=== PATIENT | male | born 2000 | race Caucasian/White ===

== ENCOUNTER 2019-04-04 11:32 | Emergency (ER) | payer BC, OTHER ==
[2019-04-04] MEDS ORDERED: LIDOCAINE VISCOUS 2% SOLN 15 ML UDC ONE (12:32)
[2019-04-04] MEDS ORDERED: FAMOTIDINE 20 MG TAB ONE (12:32)
[2019-04-04] MEDS ORDERED: MAGNE/ALUM HYDROXD 30 ML UCUP ONE (12:32)
[2019-04-04] MEDS ORDERED: ONDANSETRON 4 MG (ODT) TAB ONE (12:33)
--- NOTE | 2019-04-04 12:42 | ER ---
Nurse's Notes [facility] Name: Jay Haddad Age: 19 yrs Sex: Male : 2000 Arrival Date: 04/04/2019 Time: 11:35 Bed 19 [facility] MD: Diagnosis: Hematemesis;Alcoholic gastritis Presentation: 04/04 11:44 Presenting complaint: Patient states: "I threw up a few times this morning and I saw hb some blood in it." Reports nausea and sore throat x 1 week. Tolerating fludis. Transition of care: patient was not received from another setting of care. Onset of symptoms was April 04, 2019. Risk Assessment: Do you want to hurt yourself or someone else? Patient reports no desire to harm self or others. Care prior to arrival: None. 11:44 Method Of Arrival: Ambulatory hb 11:44 Acuity: ADY 4 hb 12:00 Initial Sepsis Screen: Does the patient meet any 2 criteria? No. Patient's initial ca1 sepsis screen is negative. Does the patient have a suspected source of infection? No. Patient's initial sepsis screen is negative. Triage Assessment: 13:27 GI: Reports. ca1 Historical: - Allergies: 11:45 No Known Allergies; hb - Home Meds: 11:45 None [Active]; hb - PMHx: 11:45 None; hb - PSHx: 11:45 None; hb - Immunization history:: Adult Immunizations up to date. - Social history:: Smoking status: Patient/guardian denies using tobacco. - Ebola Screening: : No symptoms or risks identified at this time. - Family history:: not pertinent. - Hospitalizations: : No recent hospitalization is reported. Screenin:59 Abuse screen: Denies threats or abuse. Denies injuries from another. Nutritional ca1 screening: No deficits noted. Tuberculosis screening: No symptoms or risk factors identified. Fall Risk None identified. Assessment: 11:59 General: Appears in no apparent distress. comfortable, Behavior is calm, cooperative, ca1 appropriate for age. Pain: Complains of pain in epigastric area Pain currently is 2 out of 10 on a pain scale. Pain began after vomiting Is intermittent. Neuro: Level of Consciousness is awake, alert, obeys commands, Oriented to person, place, time, situation, Appropriate for age. GI: Abdomen is flat, non-distended, Bowel sounds present X 4 quads. Abd is soft X 4 quads Abdomen is tender to palpation in left upper quadrant. : No deficits noted. No signs and/or symptoms were reported regarding the genitourinary system. Derm: Skin is intact, is healthy with good turgor, Skin is pink, warm \\T\\ dry. Musculoskeletal: Circulation, motion, and sensation intact. Capillary refill < 3 seconds. 13:15 Reassessment: Patient appears in no apparent distress at this time. Patient is alert, ca1 oriented x 3, equal unlabored respirations, skin warm/dry/pink. Patient states feeling better. Vital Signs: 11:45 BP 132 / 82; Pulse 80; Resp 16; Temp 98.2; Pulse Ox 98% on R/A; Weight 72.57 kg; Height hb 5 ft. 7 in. (170.18 cm); Pain 3/10; 13:15 BP 122 / 82; Pulse 85; Resp 17 S; Pulse Ox 99% on R/A; ca1 11:45 Body Mass Index 25.06 (72.57 kg, 170.18 cm) hb ED Course: 11:35 Patient arrived in ED. mr 11:45 Triage completed. hb 11:45 Arm band placed on. hb 11:53 Faby Batista, RN is Primary Nurse. ca1 11:59 Patient has correct armband on for positive identification. Placed in gown. Bed in low ca1 position. Call light in reach. Side rails up X 1. Pulse ox on. NIBP on. 12:18 Tyrone Philip MD is Attending Physician. rn 12:42 Jered Thomas MD is Referral Physician. rn 13:20 No provider procedures requiring assistance completed. Patient did not have IV access ca1 during this emergency room visit. Administered Medications: 12:31 Drug: Pepcid 20 mg Route: PO; ca1 13:26 Follow up: Response: No adverse reaction; Pain is decreased ca1 12:32 Drug: Zofran 4 mg Route: PO; ca1 13:25 Follow up: Response: No adverse reaction; Pain is decreased ca1 12:35 Drug: GI Cocktail without - (Maalox Suspension 30 ml, Lidocaine Liquid 2 % 15 ca1 ml) Route: PO; 13:25 Follow up: Response: No adverse reaction; Pain is decreased ca1 Outcome: 12:42 Discharge ordered by . rn 13:20 Discharged to home ambulatory. ca1 13:20 Condition: stable 13:20 Discharge instructions given to patient, Instructed on discharge instructions, follow up and referral plans. medication usage, Demonstrated understanding of instructions, follow-up care, medications, Prescriptions given X 2. 13:28 Patient left the ED. ca1 Signatures: Esperanza Chambers Roman, MD MD rn Baxter, Heather, RN RN Faby Batista RN RN ca1
--- NOTE | 2019-04-04 12:42 | EDPHYS ---
Physician Documentation [facility] Name: Jay Haddad Age: 19 yrs Sex: Male : 2000 Arrival Date: 04/04/2019 Time: 11:35 Bed 19 Private MD: ED Physician Tyrone Philip HPI: 04/04 12:37 This 19 yrs old Male presents to ER via Ambulatory with complaints of rn Vomiting. 12:37 The patient presents to the emergency department with nausea, vomiting. Onset: The rn symptoms/episode began/occurred just prior to arrival. Possible causes: unknown. The symptoms are aggravated by nothing. The symptoms are alleviated by nothing. Associated signs and symptoms: Pertinent positives: nausea, vomiting, Pertinent negatives: abdominal pain, diarrhea, dysuria, fever, hematuria. Severity of symptoms: At their worst the symptoms were mild in the emergency department the symptoms have improved. The patient has not experienced similar symptoms in the past. Reports just turned 19 this weekend, moderate to heavy drinking, again last night, woke up to go to work this AM, threw up small amount of blood x 2, less in second one, and no longer happened, came in for evaluation. No abd pain. No black or bloody stool. No hx of acid reflux. . Historical: - Allergies: 11:45 No Known Allergies; hb - Home Meds: 11:45 None [Active]; hb - PMHx: 11:45 None; hb - PSHx: 11:45 None; hb - Immunization history:: Adult Immunizations up to date. - Social history:: Smoking status: Patient/guardian denies using tobacco. - Ebola Screening: : No symptoms or risks identified at this time. - Family history:: not pertinent. - Hospitalizations: : No recent hospitalization is reported. ROS: 12:37 Constitutional: Negative for fever, chills, and weight loss, Eyes: Negative for injury, rn pain, redness, and discharge, Neck: Negative for injury, pain, and swelling, Cardiovascular: Negative for chest pain, palpitations, and edema, Respiratory: Negative for shortness of breath, cough, wheezing, and pleuritic chest pain, Abdomen/GI: Negative for abdominal pain, diarrhea, and constipation, MS/Extremity: Negative for injury and deformity, Skin: Negative for injury, rash, and discoloration, Neuro: Negative for headache, weakness, numbness, tingling, and seizure. Exam: 12:37 Constitutional: This is a well developed, well nourished patient who is awake, alert, rn and in no acute distress. Head/Face: Normocephalic, atraumatic. ENT: No oral trauma or bleeding Neck: Trachea midline, no thyromegaly or masses palpated, and no cervical lymphadenopathy. Supple, full range of motion without nuchal rigidity, or vertebral point tenderness. No Meningismus. Cardiovascular: Regular rate and rhythm. No pulse deficits. Respiratory: No increased work of breathing, no retractions or nasal flaring. Abdomen/GI: soft, non-tender, no rebound/masses MS/ Extremity: Pulses equal, no cyanosis. Neurovascular intact. Full, normal range of motion. Equal circumference. Neuro: Awake and alert, GCS 15, oriented to person, place, time, and situation. Cranial nerves II-XII grossly intact. Motor strength 5/5 in all extremities. Sensory grossly intact. Cerebellar exam normal Vital Signs: 11:45 BP 132 / 82; Pulse 80; Resp 16; Temp 98.2; Pulse Ox 98% on R/A; Weight 72.57 kg; Height hb 5 ft. 7 in. (170.18 cm); Pain 3/10; 13:15 BP 122 / 82; Pulse 85; Resp 17 S; Pulse Ox 99% on R/A; ca1 11:45 Body Mass Index 25.06 (72.57 kg, 170.18 cm) hb MDM: 12:18 Patient medically screened. rn 12:37 Differential diagnosis: gastritis, lucretia martinez tear. Data reviewed: vital signs, rn nurses notes, and as a result, I will discharge patient. Counseling: I had a detailed discussion with the patient and/or guardian regarding: the historical points, exam findings, and any diagnostic results supporting the discharge/admit diagnosis, the need for outpatient follow up, to return to the emergency department if symptoms worsen or persist or if there are any questions or concerns that arise at home. Response to treatment: the patient's symptoms have mildly improved after treatment, and as a result, I will discharge patient. ED course: Given heavy drinking this weekend, dry heaves, and normal vitals/exam, most likely either small tear vs alcoholic gastritis, recommend cessation of ETOH, will give nausea and acid meds, and return precautions, no indication for emergent EGD at this point. . Administered Medications: 12:31 Drug: Pepcid 20 mg Route: PO; ca1 13:26 Follow up: Response: No adverse reaction; Pain is decreased ca1 12:32 Drug: Zofran 4 mg Route: PO; ca1 13:25 Follow up: Response: No adverse reaction; Pain is decreased ca1 12:35 Drug: GI Cocktail without - (Maalox Suspension 30 ml, Lidocaine Liquid 2 % 15 ca1 ml) Route: PO; 13:25 Follow up: Response: No adverse reaction; Pain is decreased ca1 Disposition: 04/04/19 12:42 Discharged to Home. Impression: Hematemesis, Alcoholic gastritis. - Condition is Stable. - Discharge Instructions: Gastritis, Adult, Hematemesis, Lucretia-Martinez Syndrome. - Prescriptions for Zofran ODT 4 mg Oral tablet,disintegrating - place 1 tablet by TRANSLINGUAL route every 8 hours As needed; 20 tablet. Protonix 40 mg Oral Tablet - take 1 tablet by ORAL route once daily; 30 tablet. - Work release form, Medication Reconciliation Form, Thank You Letter, Antibiotic Education, Prescription Opioid Use form. - Follow up: Jered Thomas MD; When: As needed; Reason: Recheck today's complaints, Re-evaluation by your physician. - Problem is new. - Symptoms have improved. Signatures: Tyrone Philip MD MD rn Baxter, Heather, RN RN AcFaby hills RN RN ca1 Corrections: (The following items were deleted from the chart) 13:28 12:42 04/04/2019 12:42 Discharged to Home. Impression: Hematemesis; Alcoholic ca1 gastritis. Condition is Stable. Forms are Medication Reconciliation Form, Thank You Letter, Antibiotic Education, Prescription Opioid Use. Follow up: Jered Thomas; When: As needed; Reason: Recheck today's complaints, Re-evaluation by your physician. Problem is new. Symptoms have improved. rn
[2019-04-04 13:36] VITALS: TEMP 98.2
[2019-04-04 13:37] VITALS: BP 122/82; O2SAT 99
== END 2019-04-04 13:28 | disposition home or self-care (01) ==
LOC: ER 11:32
DX: K92.0 Hematemesis (principal); K29.21 Alcoholic gastritis with bleeding
CPT/HCPCS: 99283

== ENCOUNTER 2019-09-14 11:35 | Emergency (ER) | payer BC, OTHER ==
--- NOTE | 2019-09-14 12:57 | RAD REPORT ---
EXAM DESCRIPTION: RAD - Chest Single View - 09/14/2019 12:47 pm CLINICAL HISTORY: fever, cough Chest pain. COMPARISON: No comparisons FINDINGS: Portable technique limits examination quality. The lungs are grossly clear. The heart is normal in size. No displaced fractures. IMPRESSION: No acute intrathoracic process suspected.
--- NOTE | 2019-09-14 13:30 | ER ---
Nurse's Notes [facility] Name: Jay Haddad Age: 19 yrs Sex: Male : 2000 Arrival Date: 09/14/2019 Time: 11:41 Bed 15 Private MD: Diagnosis: Other viral infections of unspecified site Presentation: 09/13 11:51 Chief complaint: Nonproductive cough, sore throat, and fever x 2 days, diarrhea today. hb Denies SOB. TMAX 100.8. Coronavirus screen: Patient reports a cough. Patient reports a measured and/or subjective temperature greater than 100.4F. Patient denies contact with known and/or suspected case of COVID-19. pt instructed to keep facial mask in place, pt verbalized understanding of instructions. RAFAEL Mora notified. Ebola Screen: No symptoms or risks identified at this time. Resp Distress? No respiratory distress is noted at this time. Initial Sepsis Screen: Does the patient meet any 2 criteria? No. Patient's initial sepsis screen is negative. Does the patient have a suspected source of infection? No. Patient's initial sepsis screen is negative. Risk Assessment: Do you want to hurt yourself or someone else? Patient reports no desire to harm self or others. Onset of symptoms was September 13, 2019. 11:51 Method Of Arrival: Ambulatory hb 11:51 Acuity: ADY 3 hb Historical: - Allergies: 11:55 No Known Allergies; hb - Home Meds: 11:55 None [Active]; hb - PMHx: 11:55 None; hb - PSHx: 11:55 None; hb - Immunization history:: Adult Immunizations up to date. - Social history:: Smoking status: Patient denies any tobacco usage or history of. Screenin:26 Abuse screen: Denies threats or abuse. Nutritional screening: No deficits noted. ll1 Tuberculosis screening: No symptoms or risk factors identified. Fall Risk None identified. Total Connolly Fall Scale indicates No Risk (0-24 pts). Assessment: 12:24 General: Appears in no apparent distress. Behavior is calm, cooperative, appropriate ll1 for age. Pain: Complains of pain in sore throat Quality of pain is described as aching, Pain began 2-3 days ago. Neuro: No deficits noted. Cardiovascular: No deficits noted. Cardiovascular: No deficits noted. Respiratory: Reports cough that is non-productive, Airway is patent Trachea midline Respiratory effort is even, unlabored, Respiratory pattern is regular, symmetrical, Breath sounds are clear bilaterally. Onset: The symptoms/episode began/occurred 3 days ago. GI: Abdomen is flat, Bowel sounds present X 4 quads. Abd is soft and non tender X 4 quads. Reports diarrhea. : No deficits noted. 13:16 Reassessment: Spoke with Yolanda at [facility], issued PUI# [id number], outside lab notified.hb 13:20 Reassessment: No changes from previously documented assessment. Patient and/or family ll1 updated on plan of care and expected duration. Pain level reassessed. Patient is alert, oriented x 3, equal unlabored respirations, skin warm/dry/pink. Vital Signs: 11:51 BP 134 / 90; Pulse 89; Resp 16; Temp 99.4(TE); Pulse Ox 97% on R/A; Weight 74.84 kg; hb Height 5 ft. 8 in. (172.72 cm); Pain 4/10; 13:56 BP 113 / 71; Pulse 64; Resp 17; Pulse Ox 98% ; Pain 0/10; ll1 11:51 Body Mass Index 25.09 (74.84 kg, 172.72 cm) hb ED Course: 11:41 Patient arrived in ED. mr 11:46 Morgan Tejeda PA is PHCP. m 11:46 Deepak Diane MD is Attending Physician. m 11:51 Angelo Catalan, RN is Primary Nurse. ll1 11:54 Triage completed. hb 11:55 Arm band placed on. hb 12:27 Patient has correct armband on for positive identification. Bed in low position. Call ll1 light in reach. Side rails up X 1. 12:47 Chest Single View XRAY In Process Unspecified. EDMS 13:54 No provider procedures requiring assistance completed. Patient did not have IV access ll1 during this emergency room visit. Administered Medications: No medications were administered Outcome: 13:30 Discharge ordered by . [facility] 13:55 Discharged to home ambulatory. ll1 13:55 Condition: stable 13:55 Discharge instructions given to patient, Instructed on discharge instructions, follow up and referral plans. Demonstrated understanding of instructions, follow-up care. 13:59 Patient left the ED. ll1 Addendum: 09/18/2019 16:10 Addendum: Other pt notified of negative COVID-19 swab results. Pt advised to continue d m5 to monitor symptoms, to remain in isolation until fever free for 72 hours without medication or 7 days from symptom onset, and to return to the ED if symptoms worsen. Signatures: Dispatcher [employer] Steph Frederick RN RN dm5 Morgan Tejeda PA PA jmm Rivera, Mary Yolanda Harry RN RN hb Lewis, Lynsay, RN RN ll1
--- NOTE | 2019-09-14 13:31 | EDPHYS ---
Physician Documentation [facility] Name: Jay Haddad Age: 19 yrs Sex: Male : 2000 Arrival Date: 09/14/2019 Time: 11:41 Bed 15 Private MD: ED Physician Deepak Diane HPI: 09/13 11:48 This 19 yrs old Male presents to ER via Ambulatory with complaints of Cough, jmm Congestion, Fever, Sore Throat. 11:48 The patient or guardian reports cough, described as moderate. Onset: The jmm symptoms/episode began/occurred gradually, 2 day(s) ago. Modifying factors: The symptoms are alleviated by nothing, the symptoms are aggravated by nothing. Associated signs and symptoms: Pertinent positives: diarrhea, fever. This is a 19 year old male with no chronic medical conditions that presents to the ED with complaints of cough, sore throat, congestion, diarrhea beginning today with fever. Patient denies shortness of breath.. Historical: - Allergies: 11:55 No Known Allergies; hb - Home Meds: 11:55 None [Active]; hb - PMHx: 11:55 None; hb - PSHx: 11:55 None; hb - Immunization history:: Adult Immunizations up to date. - Social history:: Smoking status: Patient denies any tobacco usage or history of. ROS: 11:14 Eyes: Negative for injury, pain, redness, and discharge. jmm 11:14 ENT: Positive for sinus congestion, sore throat. jmm 11:14 Respiratory: Positive for cough. 11:14 Abdomen/GI: Positive for diarrhea, Negative for abdominal pain, nausea and vomiting. 11:14 All other systems are negative. 11:48 Constitutional: Positive for body aches, fever. jmm Exam: 11:14 Constitutional: This is a well developed, well nourished patient who is awake, alert, jmm and in no acute distress. Head/Face: atraumatic. Eyes: EOMI, no conjunctival erythema appreciated ENT: Moist Mucus Membranes Neck: Trachea midline, Supple Chest/axilla: Normal chest wall appearance and motion. Cardiovascular: Regular rate and rhythm. No edema appreciated Respiratory: Normal respirations, no respiratory distress appreciated Abdomen/GI: Non distended, soft Back: Normal ROM Skin: General appearance color normal MS/ Extremity: Moves all extremities, no obvious deformities appreciated, no edema noted to the lower extremities Neuro: Awake and alert, normal gait Psych: Behavior is normal, Mood is normal, Patient is cooperative and pleasant Vital Signs: 11:51 BP 134 / 90; Pulse 89; Resp 16; Temp 99.4(TE); Pulse Ox 97% on R/A; Weight 74.84 kg; hb Height 5 ft. 8 in. (172.72 cm); Pain 4/10; 13:56 BP 113 / 71; Pulse 64; Resp 17; Pulse Ox 98% ; Pain 0/10; ll1 11:51 Body Mass Index 25.09 (74.84 kg, 172.72 cm) hb MDM: 11:48 Patient medically screened. [facility] 13:30 Data reviewed: vital signs, nurses notes. Counseling: I had a detailed discussion with carlie the patient and/or guardian regarding: the historical points, exam findings, and any diagnostic results supporting the discharge/admit diagnosis, lab results, radiology results, the need for outpatient follow up, to return to the emergency department if symptoms worsen or persist or if there are any questions or concerns that arise at home. 14:21 ED course: Patient is alert and non toxic in appearance in the ED. No signs of hypoxia. [facility] patient is given strict return precautions. patient understood and agrees with the plan of care. . 09/13 11:57 Order name: COVID-19 [facility] 09/13 11:57 Order name: Flu; Complete Time: 13:03 [facility] 09/13 11:57 Order name: Strep; Complete Time: 13:03 [facility] 09/13 11:57 Order name: Document PUI# [facility] 09/13 11:57 Order name: Chest Single View XRAY; Complete Time: 13:03 [facility] 09/13 12:59 Order name: Throat Culture [facility] 09/13 11:57 Order name: Droplet/Contact Precautions; Complete Time: 12:14 [facility] 09/13 11:57 Order name: Labs collected and sent; Complete Time: 12:14 [facility] 09/13 11:57 Order name: Notify Health Dept [id number]/ [facility] 09/13 11:57 Order name: O2 Per Protocol; Complete Time: 12:14 [facility] Administered Medications: No medications were administered Disposition: 14:55 Co-signature as Attending Physician, Deepak Diane MD I agree with the assessment and maki plan of care. Disposition: 09/14/19 13:30 Discharged to Home. Impression: Other viral infections of unspecified site. - Condition is Stable. - Discharge Instructions: Viral Respiratory Infection, COVID-19. - Medication Reconciliation Form, Thank You Letter, Antibiotic Education, Prescription Opioid Use, Work release form form. - Follow up: Private Physician; When: 2 - 3 days; Reason: Recheck today's complaints, Continuance of care, Re-evaluation by your physician. Signatures: Dispatcher [employer] EDDeepak Mackay MD MD cha Mickail, Joel, PA PA Yolanda Naik, RN RN Angelo Wakefield RN RN ll1 Corrections: (The following items were deleted from the chart) 13:59 13:30 09/14/2019 13:30 Discharged to Home. Impression: Other viral infections of ll1 unspecified site. Condition is Stable. Forms are Medication Reconciliation Form, Thank You Letter, Antibiotic Education, Prescription Opioid Use. Follow up: Private Physician; When: 2 - 3 days; Reason: Recheck today's complaints, Continuance of care, Re-evaluation by your physician. carile 14:22 13:30 Counseling: I had a detailed discussion with the patient and/or guardian carlie regarding: the historical points, exam findings, and any diagnostic results supporting the discharge/admit diagnosis, the need for outpatient follow up, to return to the emergency department if symptoms worsen or persist or if there are any questions or concerns that arise at home, carlie
[2019-09-14 14:10] VITALS: BP 134/90; TEMP 99.4; O2SAT 97
== END 2019-09-14 13:59 | disposition home or self-care (01) ==
LOC: ER 11:35
DX: B34.8 Other viral infections of unspecified site (principal); Z20.828 Contact with and (suspected) exposure to other viral communicable diseases
CPT/HCPCS: 87070; 87081; 87804 ×2; 71045; 99283; U0001

== ENCOUNTER 2020-02-29 06:28 | Emergency (ER) | payer BC, OTHER ==
[2020-02-29] MEDS ORDERED: KETOROLAC 30 MG/ML INJ ONE (07:46)
[2020-02-29] MEDS ORDERED: METHYLPREDNISOLONE 125 MG INJ ONE (07:46)
--- NOTE | 2020-02-29 09:04 | RAD REPORT ---
EXAM DESCRIPTION: RAD - Chest Single View - 02/29/2020 7:54 am CLINICAL HISTORY: CHEST PAIN Chest pain. COMPARISON: Chest Single View dated 09/14/2019 FINDINGS: Portable technique limits examination quality. The lungs are grossly clear. The heart is normal in size. No displaced fractures. IMPRESSION: No acute intrathoracic process suspected.
--- NOTE | 2020-02-29 09:28 | ER ---
Nurse's Notes [facility] Name: Jay Haddad Age: 19 yrs Sex: Male : 2000 Arrival Date: 02/29/2020 Time: 06:30 Bed 13 Private MD: Diagnosis: Other chest pain Presentation: 02/28 06:38 Onset of symptoms was February 29, 2020. Care prior to arrival: None. sg 06:38 Acuity: ADY 3 sg 06:38 Chief complaint: Patient states: I woke up this morning to get dressed for work when I sg had a sudden onset of chest tightness with shortness of breath lasting about 5 mins, no other symptoms reported for triage. Coronavirus screen: Client denies travel out of the [place] in the last 14 days. At this time, the client does not indicate any symptoms associated with coronavirus-19. Ebola Screen: Patient negative for fever greater than or equal to 101.5 degrees Fahrenheit, and additional compatible Ebola Virus Disease symptoms Patient denies exposure to infectious person. Patient denies travel to an Ebola-affected area in the 21 days before illness onset. No symptoms or risks identified at this time. Initial Sepsis Screen: Does the patient meet any 2 criteria? No. Patient's initial sepsis screen is negative. Does the patient have a suspected source of infection? No. Patient's initial sepsis screen is negative. Risk Assessment: Do you want to hurt yourself or someone else? Patient reports no desire to harm self or others. Transition of care: patient was not received from another setting of care. 06:38 Method Of Arrival: Ambulatory sg Historical: - Allergies: 07:01 No Known Allergies; sg - Home Meds: 07:01 None [Active]; sg - PMHx: 07:01 None; sg - PSHx: 07:01 None; sg - Immunization history:: Adult Immunizations up to date. - Social history:: Smoking status: Patient denies any tobacco usage or history of. Screenin:40 Abuse screen: Denies threats or abuse. Denies injuries from another. Nutritional hb screening: No deficits noted. Tuberculosis screening: No symptoms or risk factors identified. Fall Risk None identified. Assessment: 07:40 General: Appears in no apparent distress. Behavior is calm, cooperative. Pain: hb Complains of pain in chest left upper chest Pain currently is 0 out of 10 on a pain scale. at worst was 3 out of 10 on a pain scale. Quality of pain is described as sharp, stabbing, Pain began suddenly, 2 hours ago. Is intermittent, lasting a few minutes. Neuro: Level of Consciousness is awake, alert, obeys commands, Oriented to person, place, time, situation. Cardiovascular: Capillary refill < 3 seconds Patient's skin is warm and dry. Rhythm is regular. Respiratory: Respiratory effort is even, unlabored, Respiratory pattern is regular, symmetrical. GI: No signs and/or symptoms were reported involving the gastrointestinal system. : No signs and/or symptoms were reported regarding the genitourinary system. EENT: No signs and/or symptoms were reported regarding the EENT system. Derm: Skin is pink, warm \T\ dry. Musculoskeletal: No signs and/or symptoms reported regarding the musculoskeletal system. 08:14 Reassessment: Patient appears in no apparent distress at this time. No changes from previously documented assessment. Patient and/or family updated on plan of care and expected duration. Pain level reassessed. Patient is alert, oriented x 3, equal unlabored respirations, skin warm/dry/pink. 09:12 Reassessment: Patient appears in no apparent distress at this time. Patient and/or hb family updated on plan of care and expected duration. Pain level reassessed. Patient is alert, oriented x 3, equal unlabored respirations, skin warm/dry/pink. 09:40 Reassessment: Patient appears in no apparent distress at this time. Patient and/or vg1 family updated on plan of care and expected duration. Pain level reassessed. Patient is alert, oriented x 3, equal unlabored respirations, skin warm/dry/pink. Vital Signs: 06:58 BP 121 / 73; Pulse 73; Resp 18; Temp 98.4(O); Pulse Ox 100% on R/A; mw2 08:13 BP 113 / 73; Pulse 67; Resp 16; Pulse Ox 98% ; hb 09:12 BP 109 / 82; Pulse 64; Resp 16; Pulse Ox 99% on R/A; hb ED Course: 06:30 Patient arrived in ED. cl3 06:38 Triage completed. sg 06:38 Arm band placed on. sg 07:20 Jesse Harden MD is Attending Physician. kdr 07:31 Harry, Yolanda, RN is Primary Nurse. hb 07:35 Inserted saline lock: 20 gauge in right antecubital area, using aseptic technique. hb 07:40 Patient has correct armband on for positive identification. Bed in low position. Call light in reach. Side rails up X 1. bullet casting operator on. Pulse ox on. NIBP on. 07:40 Patient maintains SpO2 saturation greater than 95% on room air. hb 09:40 IV discontinued, intact, bleeding controlled, No redness/swelling at site. Pressure vg1 dressing applied. 09:40 No provider procedures requiring assistance completed. vg1 Administered Medications: 07:39 Drug: SOLU-Medrol 125 mg Route: IVP; Site: right antecubital; hb 07:40 Drug: TORadol - Ketorolac 15 mg Route: IVP; Site: right antecubital; hb Outcome: 09:28 Discharge ordered by . kdr 09:41 Discharged to home ambulatory. vg1 09:41 Condition: stable 09:41 Discharge instructions given to patient, Instructed on discharge instructions, follow up and referral plans. medication usage, Demonstrated understanding of instructions, follow-up care, medications, Prescriptions given X 2. 09:41 Patient left the ED. vg1 Signatures: Sam Cantor, RN RN Jesse Powers MD MD [facility] Yolanda Harry, RN RN Jeff Eaton 2 Sandy Catalan cl3 Jamee Horton RN RN vg1
--- NOTE | 2020-02-29 09:28 | EDPHYS ---
Physician Documentation [facility] Name: Jay Haddad Age: 19 yrs Sex: Male : 2000 Arrival Date: 02/29/2020 Time: 06:30 Bed 13 Private MD: ED Physician Jesse Harden HPI: 02/28 08:05 This 19 yrs old Male presents to ER via Ambulatory with complaints of Chest kdr Tightness. 08:05 The patient or guardian reports chest pain that is located primarily in the substernal kdr area, anterior chest wall, left. The pain does not radiate. Associated signs and symptoms: Pertinent negatives: diaphoresis, lightheadedness, nausea, shortness of breath. The chest pain is described as Initially sharp and stabbing and made worse with deep breathing or movement of his chest wall in any way. Started about 06:15 today and lasted for about 15 minutes. Now just soreness in his chest. Duration: The patient or guardian reports a single episode, that lasted 15 minute(s). Modifying factors: The symptoms are alleviated by nothing. the symptoms are aggravated by breathing, cough, deep breath, movement, palpation of area, twisting torso, walking. Severity of pain: At its worst the pain was moderate severe just prior to arrival, in the emergency department the pain has improved markedly. The patient has not experienced similar symptoms in the past. The patient has not recently seen a physician. No family history and no other risk factors identified for CAD or other significant pathology. Historical: - Allergies: 07:01 No Known Allergies; sg - Home Meds: 07:01 None [Active]; sg - PMHx: 07:01 None; sg - PSHx: 07:01 None; sg - Immunization history:: Adult Immunizations up to date. - Social history:: Smoking status: Patient denies any tobacco usage or history of. ROS: 08:05 Constitutional: Negative for fever, chills, and weight loss, Eyes: Negative for injury, kdr pain, redness, and discharge, ENT: Negative for injury, pain, and discharge, Neck: Negative for injury, pain, and swelling, Respiratory: Negative for shortness of breath, cough, wheezing, and pleuritic chest pain, Abdomen/GI: Negative for abdominal pain, nausea, vomiting, diarrhea, and constipation, Back: Negative for injury and pain, : Negative for injury, bleeding, discharge, and swelling, MS/Extremity: Negative for injury and deformity, Skin: Negative for injury, rash, and discoloration, Neuro: Negative for headache, weakness, numbness, tingling, and seizure activity. Psych: Negative for depression, anxiety, suicide ideation, homicidal ideation, and hallucinations, Allergy/Immunology: Negative for hives, rash, and allergies, Endocrine: Negative for neck swelling, polydipsia, polyuria, polyphagia, and marked weight changes, Hematologic/Lymphatic: Negative for swollen nodes, abnormal bleeding, and unusual bruising. 08:05 Cardiovascular: Positive for chest pain, with cough, with movement, Negative for edema, orthopnea, palpitations, paroxysmal nocturnal dyspnea. Exam: 08:05 Constitutional: This is a well developed, well nourished patient who is awake, alert, kdr and in no acute distress. Head/Face: Normocephalic, atraumatic. Eyes: Pupils equal round and reactive to light, extra-ocular motions intact. Lids and lashes normal. Conjunctiva and sclera are non-icteric and not injected. Cornea within normal limits. Periorbital areas with no swelling, redness, or edema. Neck: Trachea midline, no thyromegaly or masses palpated, and no cervical lymphadenopathy. Supple, full range of motion without nuchal rigidity, or vertebral point tenderness. No Meningismus. Chest/axilla: Normal chest wall appearance and motion. Nontender with no deformity. No lesions are appreciated. Cardiovascular: Regular rate and rhythm with a normal S1 and S2. No gallops, murmurs, or rubs. Normal PMI, no JVD. No pulse deficits. Respiratory: Lungs have equal breath sounds bilaterally, clear to auscultation and percussion. No rales, rhonchi or wheezes noted. No increased work of breathing, no retractions or nasal flaring. Abdomen/GI: Soft, non-tender, with normal bowel sounds. No distension or tympany. No guarding or rebound. No evidence of tenderness throughout. Back: No spinal tenderness. No costovertebral tenderness. Full range of motion. Skin: Warm, dry with normal turgor. Normal color with no rashes, no lesions, and no evidence of cellulitis. MS/ Extremity: Pulses equal, no cyanosis. Neurovascular intact. Full, normal range of motion. Neuro: Awake and alert, GCS 15, oriented to person, place, time, and situation. Cranial nerves II-XII grossly intact. Motor strength 5/5 in all extremities. Sensory grossly intact. Cerebellar exam normal. Normal gait. Psych: Awake, alert, with orientation to person, place and time. Behavior, mood, and affect are within normal limits. Vital Signs: 06:58 BP 121 / 73; Pulse 73; Resp 18; Temp 98.4(O); Pulse Ox 100% on R/A; mw2 08:13 BP 113 / 73; Pulse 67; Resp 16; Pulse Ox 98% ; hb 09:12 BP 109 / 82; Pulse 64; Resp 16; Pulse Ox 99% on R/A; hb MDM: 08:05 HEART Score: History: Slightly Suspicious (0), ECG: Normal (0), Age: < or = 45 years kdr (0), Risk Factors: No Risk Factors Known (0). Data reviewed: vital signs. 09:28 Patient medically screened. kdr 02/28 07:27 Order name: CXR XRAY kdr 02/28 09:05 Order name: RAD EDMS 02/28 07:27 Order name: EKG Strip; Complete Time: 07:39 kdr Administered Medications: 07:39 Drug: SOLU-Medrol 125 mg Route: IVP; Site: right antecubital; hb 07:40 Drug: TORadol - Ketorolac 15 mg Route: IVP; Site: right antecubital; hb Disposition: 02/29/20 09:28 Discharged to Home. Impression: Other chest pain. - Condition is Stable. - Discharge Instructions: Nonspecific Chest Pain, Chest Wall Pain. - Prescriptions for Diclofenac Sodium 75 mg Oral Tablet Sustained Release - take 1 tablet by ORAL route 2 times per day; 30 tablet. Prednisone 20 mg Oral Tablet - take 1 tablet by ORAL route once daily for 5 days; 5 tablet. - Medication Reconciliation Form, Thank You Letter, Work release form, Family Work Release form. - Follow up: Private Physician; When: 2 - 3 days; Reason: If symptoms return, Further diagnostic work-up, Recheck today's complaints, Continuance of care, Re-evaluation by your physician. - Problem is new. - Symptoms have improved. Signatures: Dispatcher [employer] EDSam Grande, RN RN sg Jesse Harden MD MD kdr Yolanda Harry RN RN Jamee Horton RN RN vg1 Corrections: (The following items were deleted from the chart) 09:41 09:28 02/29/2020 09:28 Discharged to Home. Impression: Other chest pain. Condition is vg1 Stable. Forms are Work release form, Family Work Release, Medication Reconciliation Form, Thank You Letter, Antibiotic Education, Prescription Opioid Use. Follow up: Private Physician; When: 2 - 3 days; Reason: If symptoms return, Further diagnostic work-up, Recheck today's complaints, Continuance of care, Re-evaluation by your physician. Problem is new. Symptoms have improved. kdr
[2020-02-29 10:03] VITALS: TEMP 98.4
[2020-02-29 10:06] VITALS: BP 109/82; O2SAT 99
== END 2020-02-29 09:41 | disposition home or self-care (01) ==
LOC: ER 06:28
DX: R07.89 Other chest pain (principal)
CPT/HCPCS: 93005; 71045; 96375; 96374; 99285; J2930